=== PATIENT | male | born 2000 | race African-American/Black ===

== ENCOUNTER 2020-01-24 11:51 | Emergency (ER) | payer OTHER, SELFPAY ==
[2020-01-24] VITALS (17 sets, daily range): BP systolic 103–140; BP diastolic 62–97; PULSE 72–105; RESP 15–27; TEMP 37.1; O2SAT 92–100
--- NOTE | ~2020-01-24 | XR_ITS ---
EXAMINATION: XR ankle LT 2V DATE: 01/24/2020 12:09 INDICATION: Left ankle deformity. Fall. TECHNIQUE: 2 views of left ankle were obtained. COMPARISON: None. FINDINGS: There is a comminuted fracture of distal fibular diaphysis with medial aspect of the fractu re line 3.8 cm proximal to the level of the tibial plafond. The main distal fracture fragment demonst rates 30 degrees posterior angulation, one half shaft width posterior displacement, one shaft width l ateral displacement, and 9 degrees lateral angulation, and shortening. Bone fragments posterior to th e distal tibia on the lateral view may be from the medial malleolus or posterior malleolus. There is posterior dislocation and lateral subluxation and angulation of talus with respect to distal tibia. O ther joint spaces are normal. IMPRESSION: 1. Comminuted fracture of distal fibular diaphysis. 2. Bone fragments posterior to distal tibia that may be from the posterior malleolus or medial malleo nati. 3. Tibiotalar joint dislocation. Reviewed, dictated and finalized at location B. IMPRESSION: 1. Comminuted fracture of distal fibular diaphysis. 2. Bone fragments posterior to distal tibia that may be from the posterior mall eolus or medial malleolus. 3. Tibiotalar joint dislocation.
--- NOTE | ~2020-01-24 | XR_ITS ---
EXAMINATION: XR ankle LT 2V DATE: 01/24/2020 12:44 INDICATION: Left ankle dislocation status post reduction. TECHNIQUE: 2 views of left ankle were obtained. COMPARISON: Left ankle radiographs at 12:10 PM FINDINGS: There is normal alignment at tibiotalar joint. There is a comminuted fracture of distal fib ular diaphysis with medial aspect of the fracture line 2.5 cm proximal to the level of the tibial saundra fond. The main distal fracture fragment demonstrates near-anatomic alignment. There are fracture frag ments posterior to distal tibia on the lateral view. Joint spaces are normal. There is ankle soft tis clotilde swelling. IMPRESSION: 1. Comminuted fracture of distal fibular diaphysis in near-anatomic alignment. 2. Fracture fragments posterior to the distal tibia on the lateral view of uncertain origin. Reviewed, dictated and finalized at location B. IMPRESSION: 1. Comminuted fracture of distal fibular diaphysis in near-anatomic alignment. 2. Fracture fragments posterior to the distal tibia on the lateral view of unce rtain origin.
[2020-01-24] MEDS: SODIUM CHLORIDE 0.9% IV 1,000 ML 999 ML (12:15)
--- NOTE | 2020-01-24 12:20 | PC.NURSE ---
1220- room prepped for sedation, consent signed, capnography on pt. Pt alert and orientedx4. vital signs stable. MD at bedside
[2020-01-24] MEDS: PROPOFOL IV EMULSION 200 MG/20 ML VIAL (12:22)
--- NOTE | 2020-01-24 12:22 | PC.NURSE ---
1222- 60 [address] Dr[address] Kemp
--- NOTE | 2020-01-24 12:24 | PC.NURSE ---
1224- [address] Kemp
--- NOTE | 2020-01-24 13:51 | ED.LOWEXIN ---
HPI - Extremity Injury (Lower) General Chief Complaint: Extremity Injury, Lower Stated Complaint: L ANKLE INJURY Time Seen by Provider: 01/24/20 11:53 History of Present Illness HPI Narrative: Patient is a 19-year-old male who presents the ER with left ankle deformity. Patient was on a skateboard trying to impress some friends when he fell off and injured himself. He has no numbness or tingling. He cannot bear weight due to the injury. Did not strike his head or lose consciousness. No other injuries. Related Data Home Medications Medication Instructions Recorded Confirmed albuterol sulfate 2 puff INHALATION QID PRN 01/24/20 Allergies Allergy/AdvReac Type Severity Reaction Status Date / Time No Known Allergies Allergy Verified 01/24/20 11:57 Review of Systems Review of Systems: All systems reviewed & are unremarkable except as noted in HPI and below Constitutional: Constitutional: Denies chills, Denies fever(s) and Denies weakness ENT: Denies nasal congestion and Denies sore throat Cardiovascular: Cardiovascular: Denies chest pain and Denies radiating jaw, neck or arm pain Respiratory: Respiratory: Denies dyspnea and Denies wheezing Gastrointestinal: Gastrointestinal: Denies nausea and Denies vomiting Musculoskeletal: Musculoskeletal: Reports arthralgias Neurologic: Denies focal weakness and Denies numbness PMFSH Past Medical History Medical History (Updated 01/24/20 @ 13:56 by Estrada Kemp MD) Asthma Surgical History Surgical History (Updated 01/24/20 @ 13:52 by Estrada Kemp MD) No pertinent past surgical history Social History Social History (Updated 01/24/20 @ 13:52 by Estrada Kemp MD) Smoking status: Never smoker Gender identity (if verbalized by the patient): Male Exam Narrative: Exam Narrative: GENERAL: Well-appearing, well-nourished, and in no acute distress. HEAD: Normocephalic, atraumatic. CHEST: Clear to auscultation. No respiratory distress. HEART: Regular rate and rhythm. Normal peripheral pulses. EXTREMITIES: Focused exam left lower extremity shows deformity at the ankle and unable to perform range of motion. Neurovascular intact distal to the deformity. SKIN: Warm, dry, abrasion over the anterior medial aspect of the ankle without penetrating injury. NEURO: Alert and oriented x3. Course Course Emergency Course: Dr. Doulgas would like to see the patient in clinic tomorrow morning at 9:30 AM. Patient has been splinted and will be given pain control for home. He will also receive crutch training for nonweightbearing status. Vital Signs Vital signs: Vital Signs Temperature 98.7 F 01/24/20 11:49 Pulse Rate 95 01/24/20 11:49 Respiratory Rate 27 H 01/24/20 11:49 Blood Pressure 123/71 01/24/20 11:49 Pulse Oximetry 98 01/24/20 11:49 Temperature 98.7 F 01/24/20 11:49 Pulse Rate 85 01/24/20 12:59 Respiratory Rate 19 01/24/20 12:59 Blood Pressure 109/80 01/24/20 12:59 Pulse Oximetry 98 01/24/20 12:59 Procedures Orthopedic Fracture Reduction Fracture #1: Fracture Reduction date: 01/24/20 Fracture Reduction time: 12:23 Time Out Performed: Yes Side: left Fracture Reduction Location: tibia and fibula Analgesia: procedural sedation Pre-Procedure Neuro Vascular Exam: normal Technique: direct manipulation Post Reduction X-rays Demonstrate: anatomical reduction Post-reduction neuro exam: intact Post-reduction vascular exam: intact Splint Applied: Yes Patient Tolerated Procedure: well Orthopedic Splinting/Casting Injury #1: Splinting/Casting Date: 01/24/20 Splinting/Casting Time: 12:23 Side: left Lower Extremity Injury Location: ankle Lower Extremity Immobilizer: posterior splint and stirrup splint Splint: customized in ED Pre-Procedure Neuro Vascular Exam: normal Post-Procedure Neuro
== END 2020-01-24 14:12 | disposition home or self-care (01) ==
PROVIDERS: Emergency Provider Emergency Medicine
DX: S82.842A Displaced bimalleolar fracture of left lower leg, initial encounter for closed fracture (principal); V00.131A Fall from skateboard, initial encounter; J45.909 Unspecified asthma, uncomplicated
CPT/HCPCS: 27810; 73600; 99285; J2704; J7030

== ENCOUNTER 2020-01-26 00:13 | Outpatient (CLI) | payer OTHER, SELFPAY ==
[2020-01-26 19:19] LABS: SARS-CoV-2 RNA PCR Negative
== END 2020-01-26 00:14 | disposition home or self-care (01) ==
LOC: ANHCOVIDDT 00:14
PROVIDERS: Visit Provider Orthopaedic Surgery
DX: Z01.812 Encounter for preprocedural laboratory examination (principal); Z20.828 Contact with and (suspected) exposure to other viral communicable diseases
CPT/HCPCS: 87635; C9803; U0003

== ENCOUNTER 2020-01-27 01:41 | Day surgery (SDC) | payer OTHER, SELFPAY ==
[2020-01-25 10:42] VITALS: BMI 30.1
[2020-01-27] VITALS (12 sets, daily range): BP systolic 124–134; BP diastolic 70–83; PULSE 78–103; RESP 12–16; TEMP 36.1–37.2; O2SAT 96–100
--- NOTE | ~2020-01-27 | XR_ITS ---
EXAMINATION: XR surgery orthopedic DATE: 01/27/2020 12:59 INDICATION: ORIF left ankle fracture TECHNIQUE: 3 fluoroscopic spot images of the left ankle were obtained during procedure performed by Diana West. Radiologist was not present for the imaging or procedure. The amount of fluoroscopy hermilo e used during this procedure was 0.9 minutes. COMPARISON: Left ankle radiograph dated 01/24/2020 FINDINGS: Mildly comminuted distal left tibial diaphyseal fracture with interfragmentary screw and lateral leg screw fixation. In addition there has been associated disc tibia fibular syndesmotic fixation with me vasquez likely for tightrope type fixation along the medial margin of a lucent tunnel traversing the d istal tibia and fibula. The fracture is been reduced to near-anatomic alignment with congruent ankle mortise. Normal tibiotalar joint space with small amount of expected postoperative intra-articular ga s. IMPRESSION: 1. Essentially anatomic alignment post ORIF of a mildly comminuted distal left fibular fracture inclu ding distal tibiofibular syndesmotic fixation. Reviewed, dictated and finalized at location A. IMPRESSION: 1. Essentially anatomic alignment post ORIF of a mildly comminuted distal left fibular fracture including distal tibiofibular syndesmotic fixation.
--- NOTE | 2020-01-27 07:42 | P.PNAN_ITS ---
Anes - Initial Pre Proc Eval Procedure: Operation Date: 01/27/20 11:30 Proposed Procedures p Open Reduction Internal Fixation Of Left Lateral Malleolus And Tibiofibular Syndesmosis - Stevo Douglas MD Date/Time: 01/27/20 07:42 Surgeon: Stevo Douglas MD Pre Op Diagnosis: Left Ankle Fracture/Dislocation,Syndesmosis Disrup Patient Data Age: 19 Gender: M Height: 1.65 m Weight: 82.1 kg Allergies Allergy/AdvReac Type Severity Reaction Status Date / Time No Known Allergies Allergy Verified 01/27/20 09:44 Home Medications Medication Instructions Recorded Confirmed Type albuterol sulfate 2 puff INHALATION QID PRN 01/24/20 01/27/20 History hydrocodone-acetaminophen 1 tablet PO Q6H PRN #20 tablet 01/24/20 01/27/20 Rx omeprazole 20 mg PO DAILY 01/25/20 01/27/20 History simethicone [Mi-Acid Gas 80 mg PO TID 01/25/20 01/27/20 History Relief(simethicon)] Patient hx anesthesia problems: none Family hx anesthesia problems: none [facility] Past Medical History Medical History (Updated 01/27/20 @ 07:42 by Hussein Burgess DO) Asthma Fracture dislocation of left ankle GERD (gastroesophageal reflux disease) Sprain of deltoid ligament of left ankle Surgical History Surgical History No pertinent past surgical history Social History Social History Smoking status: Never smoker Substance use: former Substance use type: marijuana Last use: 01/21/20 Gender identity (if verbalized by the patient): Male Spiritual care concerns: No Anes - Eval Final PreProcedure Day of Procedure 01/27/20 07:42 Patient weight: obese Heart: regular rate and rhythm Lungs: clear to auscultation and normal air movement Airway: Mallampati scale class III Neurological: alert and oriented Last oral intake: >/= 8 hours ASA classification: II Emergent: no Anesthetic plan: proceed Anesthesia type and monitoring: general LMA and standard monitoring Informed Consent: The patient's anesthetic plan and its attendant risks and benefits were discussed with the patient/family/POA. Questions were solicited and answers provided to the satisfaction of the patient/family/POA.
[2020-01-27] MEDS: ACETAMINOPHEN 500 MG TABLET 1000 MG PO (09:50)
[2020-01-27] MEDS: LACTATED RINGERS 1,000 ML 30 ML IV CONT ×2 (10:10→13:15)
[2020-01-27] MEDS: KETOROLAC 15 MG/ML VIAL (*BKC) IV PUSH (10:29)
--- NOTE | 2020-01-27 11:09 | SUR.PREOP ---
Cut wrap loose to lt ankle. patient tolerated this activity poorly so shave and scrub will wait till in OR.
--- NOTE | 2020-01-27 11:22 | WPDHPUPDATE1 ---
History and Physical Update Update Date/Time: 01/27/20 11:22 History and Physical has been reviewed, including an updated exam of the patient. There are NO changes in the patient's condition. Risks, benefits, and alternatives have been discussed and questions answered. Patient agrees to proceed with procedure.
[2020-01-27] MEDS: ceFAZolin 2 GM/D5W 50 ML 2 GM/50 ML BAG IVPB (11:39)
--- NOTE | 2020-01-27 14:06 | P.OP_ITS ---
Procedure Note - Detailed Date of procedure: 01/27/20 Pre-op diagnosis: Left Ankle Fracture/Dislocation,Syndesmosis Disrup Post-op diagnosis: same Procedure performed: 1. Open reduction internal fixation ankle fracture dislocation with fixation of the fibula and distal tib-fib syndesmosis. Description of procedure: Lateral plate with cancellous cortical and locking screws. The syndesmosis was reduced with some inherent stability. A single tight rope syndesmosis fixation was applied. Implants: Arthrex 1/3 tubular plate. Single distal locking screw with multiple compression screws. One Arthrex tight rope suture button system. Anesthesia: GLMA Surgeon: Stevo Douglas MD Estimated blood loss (mL): 20 Pathology: none sent Complications: No immediate complications Condition: stable Disposition: PACU Findings: Preoperative antibiotics were given. A general anesthetic was administered. Limb was prepped and draped in the usual sterile fashion. The limb was exsanguinated and the tourniquet inflated to 3 mmHg. A longitudinal incision was created over the distal fibula. The fracture was identified and cleared of debris. Anatomic reduction was obtained with the pointed reduction forceps. A single anterior-posterior locking screw was placed with good compression and anatomic reduction. The 1/3 tubular plate was contoured and fit nicely along the lateral fibula. Three compression screws were placed proximally and 2 screws distally. The most distal screw was a locking screw. A tight rope was placed 3rd from distal screw hole. The mortise was quite stable and well reduced anatomically. The tourniquet was released. Meticulous hemostasis obtained. Wound closed in layers with 2-0 Vicryl suture, 3-0 Mo nocryl suture, elizabeth.
--- NOTE | 2020-01-27 15:02 | SUR.PHASEI ---
RN called Dr. Douglas's office to clarify if pain medication was sent to pharmacy or not. A script for [place] 5-[address] [facility] [address] [facility] [place].
--- NOTE | 2020-01-27 16:21 | SUR.PHASEII ---
1555 pt has own crutches and able to use.
== END 2020-01-27 16:05 | disposition home or self-care (01) ==
PROVIDERS: Visit Provider Orthopaedic Surgery
PROC: (CPT 27792; principal; 2020-01-27 11:30)
DX: S82.62XA Displaced fracture of lateral malleolus of left fibula, initial encounter for closed fracture (principal); S82.392A Other fracture of lower end of left tibia, initial encounter for closed fracture; S93.432A Sprain of tibiofibular ligament of left ankle, initial encounter; J45.909 Unspecified asthma, uncomplicated; V00.131A Fall from skateboard, initial encounter; Y93.51 Activity, roller skating (inline) and skateboarding
CPT/HCPCS: 27792; 27829; A9270; C1713; J0690; J1100; J1170; J1885; J2250; J2405; J2704; J3010; J7120

== ENCOUNTER 2020-05-17 14:00 | Outpatient (RCR) | payer OTHER, SELFPAY ==
--- NOTE | 2020-03-22 15:23 | PTOPEVAL ---
Thank you for referring Max West to [facility].? The patient is scheduled to be seen for therapy? 2-3 x/week for 6 weeks. Please review, sign, date and return this plan of care JEFFERY. I agree with and certify that the following plan of care is medically necessary. Referring Physician Date Attending Provider: Stevo Douglas MD Referring Provider: *PT Outpatient Evaluation Start: 03/22/20 14:20 Freq: Status: Active Protocol: Document 03/22/20 14:19 QUE (Rec: 03/22/20 15:09 QUE [id number]) Therapy Assessment Status Assessment Status Assessment Status Evaluation Outpatient Past Medical History Past Medical History Source of Past Medical History Patient,Recalled from Previous Visit, Confirmed with Patient /Family Neurological History Hx Neurological Disorders No Significant History Cardiovascular History Hx Cardiac Disorders No Significant History Respiratory History Hx Asthma Yes Gastrointestinal History Hx Gastroesophageal Reflux Disease Yes Genitourinary History Hx Genitourinary Disorders No Significant History Musculoskeletal History Hx Fractures Yes: LT ANKLE FX, R HAND FX Hx Orthopedic Surgery Yes: ORIF RT HAND FX, s/p left ankle ORIF 01/27/20 Hematological History Hx Hematological Disorders No Significant History Endocrine History Hx Endocrine Disorders No Significant History HEENT History Hx HEENT Disorders No Significant History Integumentary History Hx Skin Disorders No Significant History Reproductive History Hx Reproductive Disorders No Significant History Psychosocial History Hx Psychiatric Disorders No Significant History Pain History History of Any Previous or Ongoing No Significant History Instance of Pain Anesthesia History Hx Anesthesia Reactions No Significant History Evaluation Information Problem Diagnosis left ankle fracture with s/p ORIF Onset 01/24/20 Cause skateboarding Additional Evaluation Detail s/p ORIF 01/27/20 Subjective Information Pt was skateboarding when he Query Text:As Reported By Patient/ fell. He was DX with ankle Family sprain and fracture. He was allowed to wean out of boot as of 03/09/20, but did not remove walking boot until last week. He is using the crutches only for community mobility. He reports limitations with walking,
--- NOTE | 2020-05-17 15:00 | PTOPEVAL ---
Thank you for referring Max West to [facility].? Pt has been seen for 17 therapy visits to address impairments related to ankle surgery. He has reached maximal potential with skilled therapy services with improved LE strength, ankle range, improved pain, and improved tolerance with sports related task. He is indep with his HEP at this time. DC skilled therapy services at this time. Please review, sign, date and return this plan of care JEFFERY. I agree with and certify that the following plan of care is medically necessary. Referring Physician Date Admitting Provider: Attending Provider: Stevo Douglas MD Referring Provider: *PT Outpatient Evaluation Start: 03/22/20 14:20 Freq: Status: Active Protocol: Document 05/17/20 14:05 QUE (Rec: 05/17/20 14:38 [facility] [id number]) Therapy Assessment Status Assessment Status Assessment Status Re-evaluation/Discharge Note Evaluation Information Problem Diagnosis left ankle fracture with s/p ORIF Onset 01/24/20 Cause skateboarding Additional Evaluation Detail s/p ORIF 01/27/20 Pt was skateboarding when he fell. He was DX with ankle sprain and fracture. He was allowed to wean out of boot as of 03/09/20 Subjective Information He deniesany problems with Query Text:As Reported By Patient/ walking on level surfaces, Family running, steps and standing. He is cautious on uneven surfaces. Reports improved LE balance and improved leg strength. No difficulty with body weight resisted workout from home. He is only tried limited running of 200 meters, but has not tried regular running. He has not been on his skateboard yet. Pain Assessment Timing of Pain Assessment Timing of Pain Assessment Re-assessment Pain Scale Pain Scale Used Numeric (1 - 10) Self Report Pain Assessment Left Ankle(s) Reported Pain Level 0 Lowest Pain Intensity 0 Greatest Pain Intensity 0 Pain Score Pain Score 0: Self Report Lower Extremity Range of Motion Ankle/Foot Range of Motion Left Ankle Dorsiflexion With Knee Extension 7 Range of Motion - Active Ankle Plantarflexion Range of Motion - 46 Active Query Text: Ankle Eversion Range of Motion - Active 15 Ankle Eversion Range of Mot
== END 2020-05-18 07:37 | disposition home or self-care (01) ==
LOC: ANHPT 14:00
PROVIDERS: Visit Provider Orthopaedic Surgery
DX: Z47.89 Encounter for other orthopedic aftercare (principal)
CPT/HCPCS: 97110; 97112; 97140; 97162; 97530